=== PATIENT | female | born 1955 | race Hispanic/Latino ===

== ENCOUNTER → 2022-05-12 | Outpatient (CLI) | payer OTHER | END | disposition home or self-care (01) | LOC: RAH 08:36 | PROVIDERS: ATTEND Nurse Practitioner Family | DX: N63.22 Unspecified lump in the left breast, upper inner quadrant (principal) | CPT/HCPCS: 76641; 77065 ==

== ENCOUNTER → 2022-05-16 | Outpatient (CLI) | payer OTHER ==
[~2022-05-16] MED LIST: GADOTERATE MEGLUMINE 10 MMOL/20 ML VIAL IV ONE
== END | disposition home or self-care (01) ==
LOC: EDUNIT# 05-15 09:00 → RAH 10:00
PROVIDERS: ATTEND Obstetrics & Gynecology
DX: N63.0 Unspecified lump in unspecified breast (principal); N63.15 Unspecified lump in the right breast, overlapping quadrants; N63.21 Unspecified lump in the left breast, upper outer quadrant
CPT/HCPCS: 77049; A9575

== ENCOUNTER → 2022-06-08 | Outpatient (CLI) | payer OTHER ==
[~2022-06-08] MED LIST changes: +FAMO20TA8 PO; -GADOTERATE MEGLUMINE 10 MMOL/20 ML VIAL IV ONE; +LIDOCAINE HCL 1% 20 ML VIAL ONE; +MONT-39 PO; +TRAM50TA4 PO
[2022-06-08 08:40] LABS: INR 0.93 (0.85-1.15); PROTHROMBIN TIME 10.2 SEC (9.6-11.6)
== END | disposition home or self-care (01) ==
LOC: RAH 07:50
PROVIDERS: ATTEND Student in an Organized Health Care Education/Training Program
DX: C50.311 Malignant neoplasm of lower-inner quadrant of right female breast (principal); Z82.49 Family history of ischemic heart disease and other diseases of the circulatory system; Z88.3 Allergy status to other anti-infective agents; Z91.040 Latex allergy status; Z79.01 Long term (current) use of anticoagulants
CPT/HCPCS: 19083; 85610; 85730; 36415; 88305; 88374; A4215 ×3

== ENCOUNTER 2022-07-26 07:50 | Observation (INO) | payer OTHER ==
[2022-07-20 16:27] VITALS: BP 138/86
[2022-07-20 16:40] LABS: BASOPHILS % (AUTO) 1.4 % (0.0-5.0); EOSINOPHILS % (AUTO) 4.4 % (0.0-8.0); HEMATOCRIT 43.2 % (36-48); LYMPHOCYTES % (AUTO) 28.6 % (21.0-51.0); MEAN CORPUSCULAR HEMOGLOBIN 31.4 pg (27.0-33.0); MEAN CORPUSCULAR VOLUME 92.3 fL (79-99); MONOCYTES % (AUTO) 7.4 % (3.0-13.0); NEUTROPHILS % (AUTO) 57.9 % (40.0-77.0); PLATELET COUNT (AUTO) 182 K/uL (130-400); RED BLOOD CELL COUNT(AUTO) 4.68 MIL/uL (4.00-5.50); RED CELL DISTRIBUTION WIDTH 12.3 % (11.0-15.5); WHITE BLOOD COUNT (AUTO) 7.3 K/uL (4.8-10.8)
[2022-07-20 16:52] LABS: INR 0.95 (0.85-1.15); PROTHROMBIN TIME 10.4 SEC (9.6-11.6)
[2022-07-20 16:53] LABS: APPEARANCE,URINE CLEAR (CLEAR); BILIRUBIN,URINE NEGATIVE (NEGATIVE); COLOR,URINE LIGHT-YELLOW (YELLOW); GLUCOSE, URINE (UA) NEGATIVE (NEGATIVE); KETONES,URINE NEGATIVE (NEGATIVE); LEUKOCYTE ESTERASE ,URINE 25 Leu/uL (NEGATIVE); NITRATE,URINE NEGATIVE (NEGATIVE); PROTEIN,URINE NEGATIVE (NEGATIVE); UROBILINOGEN,URINE 0.2 mg/dL (0.2-1.0)
[2022-07-20 16:54] LABS: PARTIAL THROMBOPLASTIN TIME 25.1 SEC (26.3-35.5)
[2022-07-20 16:56] LABS: ALBUMIN 3.9 g/dL (3.5-5.0); CREATININE 1.1 mg/dL (0.5-1.5)
[2022-07-20 16:58] LABS: BACTERIA,URINE RARE /HPF (None Seen); MUCUS,URINE RARE LPF (None Seen); SQUAMOUS EPITHELIAL CELL,UR FEW /HPF (0-2)
[2022-07-26] VITALS (21 sets, daily range): BP systolic 121–176; BP diastolic 72–100
[~2022-07-26] VITALS: Ht 154.9 cm; Wt 66.0 kg
[~2022-07-26 07:50] MED LIST changes: -LIDOCAINE HCL 1% 20 ML VIAL ONE; -TRAM50TA4 PO
[2022-07-26] MEDS ORDERED: LACTATED RINGERS 1000ML 1,000 ML IV ONE (08:05)
[2022-07-26] MEDS: CEFAZOLIN SODIUM 2 GM VIAL ONE ×2 (08:16→11:00)
[2022-07-26] MEDS ORDERED: LIDOCAINE 1%-EPI 1:100,000 20 ML VIAL IJ ONE ×2 (10:01→10:05)
[2022-07-26] MEDS ORDERED: ROPIVACAINE 0.5% 5MG/ML 30ML IJ ONE (10:01)
[2022-07-26] MEDS ORDERED: CEFAZOLIN SODIUM 1 GM VIAL ONE ×3 (10:04→16:04)
[2022-07-26] MEDS ORDERED: GENTAMICIN SULFATE 80 MG/2 ML VIAL ONE (10:04)
[2022-07-26] MEDS ORDERED: METHYLENE BLUE 5 MG/ML AMP ONE (10:04)
[2022-07-26] MEDS ORDERED: PROPOFOL 1000 MG/100 ML 100 ML IV ONE ×3 (10:49→17:12)
[2022-07-26] MEDS ORDERED: METHYLENE BLUE 5 MG/ML AMP IJ ONE (11:00)
[2022-07-26] MEDS ORDERED: CEFAZOLIN SODIUM 2 GM VIAL IJ ONE ×2 (11:30→15:30)
[2022-07-26] MEDS ORDERED: GENTAMICIN SULFATE 80 MG/2 ML VIAL TP ONE (11:30)
[2022-07-26] MEDS ORDERED: MIDAZOLAM HCL 1 MG/ML 2ML VIAL ONE (12:51)
[2022-07-26] MEDS ORDERED: FENTANYL CITRATE PF 50 MCG/1 ML 5ML AMP IV ONE (12:51)
[2022-07-26] MEDS ORDERED: EPHEDRINE SULFATE 50 MG/ML AMPULE ONE (13:46)
[2022-07-26] MEDS ORDERED: PROPOFOL 10 MG/ML 20ML VIAL IV ONE ×2 (13:54→13:56)
[2022-07-26] MEDS ORDERED: BUPIVACAINE LIPOSOME/PF 266 MG/20 ML ML IV SCH (14:00)
[2022-07-26] MEDS ORDERED: CEFAZOLIN SODIUM 2 GM VIAL IVPB ONE (15:15)
[2022-07-26] MEDS ORDERED: FENTANYL CITRATE PF 50 MCG/1 ML 2ML VIAL ONE ×3 (15:39→19:11)
[2022-07-26 15:57] LABS: ABG BASE EXCESS -3.7 mmol/L (-2.0-3.0); ABG HCO3 20.5 mmol/L (21.0-28.0); ABG OXYGEN SATURATION 99.4 % (95.0-99.0); ABG PCO2 35 mmHg (32-45)
[2022-07-26] MEDS ORDERED: PHARMACY COMMUNICATION MISC SCH ×2 (16:00→16:30)
[2022-07-26] MEDS ORDERED: BUPIVACAINE/PF 0.5% 10ML VIAL ONE (16:15)
[2022-07-26] MEDS ORDERED: GLYCOPYRROLATE 1 MG/5 ML SYRINGE ONE (17:41)
[2022-07-26] MEDS ORDERED: NEOSTIGMINE 5MG/5ML SYR IV ONE (17:41)
[2022-07-26] MEDS ORDERED: ONDANSETRON 4MG INJ ONE (17:41)
[2022-07-26] MEDS ORDERED: ACETAMINOPHEN 1,000 MG/100 ML VIAL IV ONE (17:54)
[2022-07-26] MEDS ORDERED: SUGAMMADEX SODIUM 200 MG/2 ML VIAL IV ONE (18:40)
[2022-07-26] MEDS ORDERED: PHENYLEPHRINE HCL 10 MG/ML 1ML VIAL IV ONE (19:40)
[2022-07-26] MEDS ORDERED: ROCURONIUM 10MG/1ML SYR 10 MG/ML ML ONE (19:40)
[2022-07-26] MEDS ORDERED: DEXAMETHASONE SOD PHOSPHATE 10MG/ML 1ML VIAL ONE (19:41)
[2022-07-26] MEDS ORDERED: MORPHINE 4 MG SYG IVP PRN (21:00)
[2022-07-26] MEDS ORDERED: ONDANSETRON 4MG INJ IVP PRN (21:00)
[2022-07-26] MEDS: LACTATED RINGERS 1000ML 1,000 ML IV SCH (22:29)
[2022-07-27] MEDS: TRAMADOL HCL 50 MG TABLET PO SCH ×4 (02:54→21:06)
[2022-07-27 03:00] VITALS: BP 160/82
[2022-07-27 06:34] VITALS: BP 138/75
[2022-07-27 07:12] LABS: HEMATOCRIT 35.6 % (36-48); MEAN CORPUSCULAR HEMOGLOBIN 31.2 pg (27.0-33.0); MEAN CORPUSCULAR VOLUME 91.8 fL (79-99); RED BLOOD CELL COUNT(AUTO) 3.88 MIL/uL (4.00-5.50); RED CELL DISTRIBUTION WIDTH 12.5 % (11.0-15.5); WHITE BLOOD COUNT (AUTO) 14.5 K/uL (4.8-10.8)
[2022-07-27 07:25] LABS: CREATININE 0.8 mg/dL (0.5-1.5); POTASSIUM 4.1 mmol/L (3.5-5.1)
[2022-07-27] MEDS: LACTATED RINGERS 1000ML 1,000 ML IV SCH (07:30)
[2022-07-27] MEDS: DOCUSATE SODIUM 100 MG CAP PO PRN ×2 (08:56→21:02)
[2022-07-27] MEDS: SIMETHICONE 80 MG TAB.CHEW PO PRN ×3 (08:56→21:02)
[2022-07-27 11:45] VITALS: BP 141/84
[2022-07-27 15:45] VITALS: BP 135/73
[2022-07-27] MEDS: IBUPROFEN 600 MG TABLET PO PRN (17:30)
[2022-07-27 19:30] VITALS: BP 126/70
[2022-07-27 23:12] VITALS: BP 113/69
[2022-07-28 03:23] VITALS: BP 127/78
[2022-07-28] MEDS: TRAMADOL HCL 50 MG TABLET PO SCH ×3 (03:25→15:17)
[2022-07-28] MEDS: IBUPROFEN 600 MG TABLET PO PRN (06:17)
[2022-07-28 07:31] VITALS: BP 110/72
[2022-07-28] MEDS: SIMETHICONE 80 MG TAB.CHEW PO PRN (08:39)
[2022-07-28] MEDS: DOCUSATE SODIUM 100 MG CAP PO PRN (08:39)
[2022-07-28 11:50] VITALS: BP 138/86
[2022-07-28 11:52] VITALS: BP 106/59
[2022-07-28] MEDS ORDERED: TRAM50TA4 PO (14:15)
[2022-07-28 15:59] VITALS: BP 143/82
== END 2022-07-28 16:35 | disposition home or self-care (01) ==
LOC: DAH 07:50 → WSH 07:51 → DAH 07:51
PROVIDERS: ADMIT Student in an Organized Health Care Education/Training Program; ATTEND Student in an Organized Health Care Education/Training Program
DX: C50.911 Malignant neoplasm of unspecified site of right female breast (principal); Z20.822 Contact with and (suspected) exposure to COVID-19; C50.912 Malignant neoplasm of unspecified site of left female breast; Z79.899 Other long term (current) drug therapy; Z98.890 Other specified postprocedural states
CPT/HCPCS: 80053; 85025; 85610; 85730; 87426; 81001; 36415 ×2; 93005; 19303; 96374; 82435; 82947; 84132; 84295; 82803; 85018; 83605; 88309; 88360; 80048; 85027; A6260; C1781; C1789; G0378 ×47; G0379; A4663; J7120 ×4; J3010 ×4; J0690 ×7; J3490 ×5; J1100; J2710; J1580 ×2; J2250; J2704 ×5; J2405; J2270; J2795; J2370; A6204; A4649; A9272; A4215; A4223; A4222; A4221; A4600; C9290 ×2; Q9968